=== PATIENT | female | born 1970 | race Caucasian/White ===

== ENCOUNTER 2021-03-20 06:00 | Outpatient (CLI) | payer SELFPAY ==
[2021-03-20 12:47] LABS: D Dimer 0.29 ug/mIFEU (0-0.59)
== END 2021-03-20 06:01 | disposition home or self-care (01) ==
LOC: LAB 12-31 15:00
PROVIDERS: PCP Family Medicine; Visit Provider Family Medicine
DX: R00.0 Tachycardia, unspecified (principal)
CPT/HCPCS: 85378

== ENCOUNTER 2022-09-24 07:27 | Outpatient (CLI) | payer OTHER, SELFPAY ==
--- NOTE | 2022-09-24 07:48 | MM_ITS ---
WS: [id number] BILATERAL SCREENING DIGITAL BREAST MAMMOGRAPHY WITH FABIO DISPLACEMENT VIEWS. CAD PERFORMED. HISTORY: SCREENING COMPARISON: 10/28/2017 Bilateral craniocaudal and mediolateral oblique views are performed with tomosynthesis and SM. Fabio displacement views in CC and MLO projection also performed. Breasts composition: There are scattered areas of fibroglandular density. Prepectoral implants are intact. No interval change. No collapse or capsular contraction. No suspicio us masses or calcifications. MM/[place] [id number] IMPRESSION: BI-RADS: 2-Benign FOLLOW-UP: 1 Year Follow-up
== END 2022-09-24 07:28 | disposition home or self-care (01) ==
PROVIDERS: PCP Family Medicine; Visit Provider Family Medicine
DX: Z12.31 Encounter for screening mammogram for malignant neoplasm of breast (principal)
CPT/HCPCS: 77063; 77067